=== PATIENT | male | born 1955 | race Hispanic/Latino ===

== ENCOUNTER 2024-06-01 19:04 | Inpatient (IN) | payer MEDICARE ==
[~2024-06-01] VITALS: Ht 182.9 cm; Wt 101.6 kg
[2024-06-01 19:10] VITALS: PULSE 100; RESP 20; TEMP 98.6
[2024-06-01 19:32] LABS: BASOPHILS % 0.2 % (0.0-1.0); EOSINOPHILS # (AUTO) 0.1 (0.0-0.4); EOSINOPHILS % 0.6 % (0.0-6.0); HEMATOCRIT 33.5 % (38.2-49.6); HEMOGLOBIN 10.3 g/dL (14.0-18.0); LYMPHOCYTES # (AUTO) 1.2 (1.0-3.2); MEAN CORPUSCULAR HEMOGLOBIN 32.5 pg (28-32); MEAN CORPUSCULAR HGB CONC 30.7 g/dL (31-35); MEAN CORPUSCULAR VOLUME 105.7 fL (81-99); MONOCYTES # (AUTO) 0.9 (0.2-0.8); MONOCYTES % 4.9 % (4.4-11.3); NEUTROPHILS # (AUTO) 14.8 (2.1-6.9); NEUTROPHILS % 84.9 % (38.7-80.0); PLATELET COUNT 245 x10e3/uL (140-360); RED BLOOD COUNT 3.17 x10e6/uL (4.3-5.7); RED CELL DISTRIBUTION WIDTH 14.2 % (11.7-14.4)
[2024-06-01 19:47] LABS: CORONAVIRUS COVID-19 AG NEGATIVE (NEGATIVE); INFLUENZA A AG NEGATIVE (NEGATIVE); INFLUENZA B AG NEGATIVE (NEGATIVE)
[2024-06-01 19:56] LABS: ALBUMIN 2.7 g/dL (3.5-5.0); ALBUMIN/GLOBULIN RATIO 0.6 (0.8-2.0); ANION GAP 23.9 mmol/L (8-16); BILIRUBIN,TOTAL 0.6 mg/dL (0.2-1.2); CREATININE, SERUM 7.71 mg/dL (0.72-1.25); POTASSIUM 3.9 mmol/L (3.5-5.1); TOTAL PROTEIN 7.4 g/dL (6.5-8.1)
[2024-06-01 20:04] LABS: TROPONIN I 3.878 ng/mL (0-0.300)
[2024-06-01] MEDS: ASPIRIN 325 MG TAB PO STA (20:41)
[2024-06-01] MEDS ORDERED: Morphine 4mg INJECTION 4 MG/ML INJ IV PRN (22:45)
[2024-06-01] MEDS ORDERED: ONDANSETRON HCL INJ 2MG/ML 2ML 2 MG/ML VIAL IV PRN (22:45)
[2024-06-01 23:46] VITALS: BP 104/64; PULSE 99; RESP 20; TEMP 97.6; O2SAT 97
[2024-06-02] VITALS (9 sets, daily range): BP systolic 83–119; BP diastolic 44–86; PULSE 67–102; RESP 16–21; TEMP 97.3–98.3; O2SAT 95–100
[2024-06-02] MEDS ORDERED: NEURONTIN300 MG PO (02:29)
[2024-06-02] MEDS ORDERED: RENA-VITE TABL0.8 MG (02:29)
[2024-06-02] MEDS ORDERED: AMIODARONE HCL200 MG PO (02:29)
[2024-06-02] MEDS ORDERED: ELIQUIS2.5 MG PO (02:29)
[2024-06-02] MEDS ORDERED: FUROSEMIDE40 MG PO (02:29)
[2024-06-02] MEDS ORDERED: LIPITOR20 MG PO (02:29)
[2024-06-02] MEDS ORDERED: AMOXICILLIN500 MG PO (02:29)
[2024-06-02 04:26] LABS: BASOPHILS % 0.2 % (0.0-1.0); EOSINOPHILS # (AUTO) 0.2 (0.0-0.4); EOSINOPHILS % 0.8 % (0.0-6.0); HEMATOCRIT 31.5 % (38.2-49.6); HEMOGLOBIN 9.9 g/dL (14.0-18.0); MEAN CORPUSCULAR HGB CONC 31.4 g/dL (31-35); MONOCYTES # (AUTO) 0.8 (0.2-0.8); MONOCYTES % 4.2 % (4.4-11.3); NEUTROPHILS # (AUTO) 14.8 (2.1-6.9); NEUTROPHILS % 81.8 % (38.7-80.0); PLATELET COUNT 223 x10e3/uL (140-360); RED CELL DISTRIBUTION WIDTH 14.2 % (11.7-14.4); WHITE BLOOD COUNT 18.05 x10e3/uL (4.8-10.8)
[2024-06-02 04:53] LABS: ALBUMIN 2.5 g/dL (3.5-5.0); ALBUMIN/GLOBULIN RATIO 0.6 (0.8-2.0); ANION GAP 22.6 mmol/L (8-16); BILIRUBIN,TOTAL 0.5 mg/dL (0.2-1.2); CALCIUM 8.9 mg/dL (8.4-10.2); CREATININE, SERUM 8.11 mg/dL (0.72-1.25); POTASSIUM 3.6 mmol/L (3.5-5.1)
[2024-06-02 05:04] LABS: TROPONIN I 4.294 ng/mL (0-0.300)
[2024-06-02] MEDS: CLOPIDOGREL BISULFATE 75 MG TAB PO ONE (10:14)
[2024-06-02] MEDS ORDERED: DEXTROSE 50% SYRINGE 50 ML IV PRN (11:30)
[2024-06-02] MEDS: INSULIN REGULAR, HUMAN 100 UNIT/1 ML SQ SCH (12:32)
[2024-06-02 16:39] LABS: TROPONIN I 2.914 ng/mL (0-0.300)
[2024-06-02] MEDS: CARVEDILOL 3.125 MG TAB PO SCH (17:00)
[2024-06-02] MEDS: GABAPENTIN 300 MG CAP PO SCH (17:20)
[2024-06-02] MEDS: APIXABAN 2.5 MG TABLET PO SCH (17:21)
[2024-06-02] MEDS: SODIUM CHLORIDE 0.9% 1000ML 2,000 ML ONE (19:48)
[2024-06-02] MEDS ORDERED: ALBUMIN 25% 12.5GM 0.25 GM/ML BTL IV PRN (20:00)
[2024-06-02] MEDS ORDERED: ATORVASTATIN 40 MG TAB PO SCH (21:00)
[2024-06-03] VITALS (12 sets, daily range): BP systolic 84–131; BP diastolic 52–72; PULSE 82–111; RESP 18–21; TEMP 97–98.8; O2SAT 94–100
[2024-06-03 06:43] LABS: BASOPHILS # (AUTO) 0.1 (0.0-0.1); BASOPHILS % 0.3 % (0.0-1.0); EOSINOPHILS % 0.2 % (0.0-6.0); HEMATOCRIT 29.9 % (38.2-49.6); HEMOGLOBIN 9.4 g/dL (14.0-18.0); LYMPHOCYTES # (AUTO) 1.3 (1.0-3.2); LYMPHOCYTES % 5.9 % (18.0-39.1); MEAN CORPUSCULAR HEMOGLOBIN 33.7 pg (28-32); MEAN CORPUSCULAR HGB CONC 31.4 g/dL (31-35); MEAN CORPUSCULAR VOLUME 107.2 fL (81-99); MONOCYTES # (AUTO) 1.1 (0.2-0.8); MONOCYTES % 5.2 % (4.4-11.3); NEUTROPHILS # (AUTO) 18.5 (2.1-6.9); NEUTROPHILS % 86.3 % (38.7-80.0); PLATELET COUNT 206 x10e3/uL (140-360); RED BLOOD COUNT 2.79 x10e6/uL (4.3-5.7); RED CELL DISTRIBUTION WIDTH 14.2 % (11.7-14.4); WHITE BLOOD COUNT 21.45 x10e3/uL (4.8-10.8)
[2024-06-03 07:18] LABS: ANION GAP 21.6 mmol/L (8-16); CALCIUM 9.3 mg/dL (8.4-10.2); CREATININE, SERUM 5.6 mg/dL (0.72-1.25); POTASSIUM 3.6 mmol/L (3.5-5.1)
[2024-06-03] MEDS: LOSARTAN POTASSIUM 25 MG TAB PO SCH (08:22)
[2024-06-03] MEDS: AMIODARONE HCL 200 MG TAB PO SCH (08:22)
[2024-06-03] MEDS: CLOPIDOGREL BISULFATE 75 MG TAB PO SCH (08:24)
[2024-06-03 09:41] LABS: LYMPHOCYTES % (MANUAL) 5 % (19-48); METAMYELOCYTES % (MANUAL) 1 % (0-0); MONOCYTES % (MANUAL) 5 % (3.4-9.0); MYELOCYTES % (MANUAL) 1 % (0-0); NEUTROPHILS % (MANUAL) 88 % (40-74); PLATELET ESTIMATE ADEQUATE; PLATELET MORPHOLOGY COMMENT NORMAL; RBC MORPHOLOGY COMMENT NORMAL
[2024-06-03] MEDS ORDERED: SODIUM CHLORIDE 0.9% 1000ML 2,000 ML IV PRN (10:15)
[2024-06-03] MEDS: BENZONATATE 100 MG CAP PO SCH (11:58)
[2024-06-03] MEDS: ALBUTEROL/IPRATROPIUM 3 ML NEB NEB SCH (14:21)
[2024-06-03] MEDS: MIDODRINE HCL 5 MG TABLET PO SCH (16:19)
[2024-06-04] VITALS (8 sets, daily range): BP systolic 103–117; BP diastolic 60–92; PULSE 72–90; RESP 18–20; TEMP 97.5–97.9; O2SAT 94–98
[2024-06-04 06:12] LABS: BASOPHILS # (AUTO) 0.1 (0.0-0.1); BASOPHILS % 0.6 % (0.0-1.0); EOSINOPHILS # (AUTO) 0.1 (0.0-0.4); EOSINOPHILS % 0.4 % (0.0-6.0); HEMATOCRIT 31.2 % (38.2-49.6); HEMOGLOBIN 9.6 g/dL (14.0-18.0); LYMPHOCYTES # (AUTO) 2.1 (1.0-3.2); LYMPHOCYTES % 8.7 % (18.0-39.1); MEAN CORPUSCULAR HGB CONC 30.8 g/dL (31-35); MEAN CORPUSCULAR VOLUME 107.2 fL (81-99); MONOCYTES # (AUTO) 1.1 (0.2-0.8); MONOCYTES % 4.6 % (4.4-11.3); NEUTROPHILS # (AUTO) 19.1 (2.1-6.9); NEUTROPHILS % 81.3 % (38.7-80.0); PLATELET COUNT 190 x10e3/uL (140-360); RED BLOOD COUNT 2.91 x10e6/uL (4.3-5.7); RED CELL DISTRIBUTION WIDTH 14.6 % (11.7-14.4); WHITE BLOOD COUNT 23.45 x10e3/uL (4.8-10.8)
[2024-06-04 06:44] LABS: ANION GAP 26.2 mmol/L (8-16); CALCIUM 8.9 mg/dL (8.4-10.2); CREATININE, SERUM 7.92 mg/dL (0.72-1.25); POTASSIUM 4.2 mmol/L (3.5-5.1)
[2024-06-04 08:28] LABS: HEPATITIS B CORE AB TOTAL Negative; HEPATITIS B SURFACE AG (P) Negative
[2024-06-04 11:04] LABS: BAND NEUTROPHILS % (MANUAL) 1 %; LYMPHOCYTES % (MANUAL) 11 % (19-48); MONOCYTES % (MANUAL) 3 % (3.4-9.0); NEUTROPHILS % (MANUAL) 84 % (40-74); PLATELET ESTIMATE ADEQUATE; PLATELET MORPHOLOGY COMMENT NORMAL; REACTIVE LYMPHOCYTES 1
[2024-06-05] VITALS (11 sets, daily range): BP systolic 103–131; BP diastolic 55–90; PULSE 68–94; RESP 16–22; TEMP 97.3–98.5; O2SAT 95–100
[2024-06-05 10:43] LABS: BILIRUBIN,DIRECT 0.6 mg/dL (0.0-0.5); TOTAL PROTEIN 6.5 g/dL (6.5-8.1)
[2024-06-05] MEDS: CEPACOL SORE THROAT LOZENGES PO ONE (15:26)
[2024-06-06] VITALS (12 sets, daily range): BP systolic 80–105; BP diastolic 30–63; PULSE 78–98; RESP 18–22; TEMP 97.3–97.9; O2SAT 96–100
[2024-06-06] MEDS: CEPACOL SORE THROAT LOZENGES PO PRN (00:20)
[2024-06-06 11:29] LABS: ANION GAP 21.4 mmol/L (8-16); CALCIUM 8.6 mg/dL (8.4-10.2); CREATININE, SERUM 7.16 mg/dL (0.72-1.25)
[2024-06-06 11:31] LABS: POTASSIUM 3.4 mmol/L (3.5-5.1)
[2024-06-06] MEDS: MIDODRINE HCL 5 MG TABLET PO SCH (12:28)
[2024-06-06 13:09] LABS: IMMUNOGLOBULIN A 469 mg/dL (61-437); IMMUNOGLOBULIN G 1361 mg/dL (603-1613)
[2024-06-06 21:36] LABS: IMMUNOGLOBULIN M 63 mg/dL (20-172)
[2024-06-07] VITALS (10 sets, daily range): BP systolic 106–125; BP diastolic 47–78; PULSE 77–101; RESP 17–20; TEMP 97–98.2; O2SAT 92–97
[2024-06-07 06:13] LABS: BASOPHILS # (AUTO) 0.2 (0.0-0.1); EOSINOPHILS # (AUTO) 0.3 (0.0-0.4); EOSINOPHILS % 1.9 % (0.0-6.0); HEMATOCRIT 33.7 % (38.2-49.6); HEMOGLOBIN 10.4 g/dL (14.0-18.0); LYMPHOCYTES # (AUTO) 2.3 (1.0-3.2); LYMPHOCYTES % 14.1 % (18.0-39.1); MEAN CORPUSCULAR HEMOGLOBIN 33.5 pg (28-32); MEAN CORPUSCULAR HGB CONC 30.9 g/dL (31-35); MEAN CORPUSCULAR VOLUME 108.7 fL (81-99); MONOCYTES # (AUTO) 1.1 (0.2-0.8); MONOCYTES % 6.4 % (4.4-11.3); NEUTROPHILS # (AUTO) 11.6 (2.1-6.9); NEUTROPHILS % 70.5 % (38.7-80.0); PLATELET COUNT 196 x10e3/uL (140-360); RED CELL DISTRIBUTION WIDTH 15.2 % (11.7-14.4); WHITE BLOOD COUNT 16.49 x10e3/uL (4.8-10.8)
[2024-06-07 06:51] LABS: ALBUMIN 2.9 g/dL (3.5-5.0); ALBUMIN/GLOBULIN RATIO 0.7 (0.8-2.0); BILIRUBIN,TOTAL 0.8 mg/dL (0.2-1.2); CALCIUM 8.8 mg/dL (8.4-10.2); CREATININE, SERUM 8.42 mg/dL (0.72-1.25); TOTAL PROTEIN 7.3 g/dL (6.5-8.1)
[2024-06-07 08:04] LABS: LYMPHOCYTES % (MANUAL) 10 % (19-48); MONOCYTES % (MANUAL) 8 % (3.4-9.0); MYELOCYTES % (MANUAL) 1 % (0-0); NEUTROPHILS % (MANUAL) 81 % (40-74)
[2024-06-07 08:05] LABS: PLATELET ESTIMATE ADEQUATE; PLATELET MORPHOLOGY COMMENT NORMAL; RBC MORPHOLOGY COMMENT NORMAL
[2024-06-07] MEDS: CARVEDILOL 3.125 MG TAB PO SCH (17:00)
[2024-06-08] VITALS (10 sets, daily range): BP systolic 99–113; BP diastolic 53–69; PULSE 82–89; RESP 17–20; TEMP 97.4–98.2; O2SAT 95–100
[2024-06-08 07:02] LABS: BASOPHILS # (AUTO) 0.1 (0.0-0.1); BASOPHILS % 0.7 % (0.0-1.0); EOSINOPHILS # (AUTO) 0.3 (0.0-0.4); EOSINOPHILS % 1.7 % (0.0-6.0); HEMATOCRIT 34.4 % (38.2-49.6); HEMOGLOBIN 10.9 g/dL (14.0-18.0); LYMPHOCYTES # (AUTO) 1.8 (1.0-3.2); LYMPHOCYTES % 11.8 % (18.0-39.1); MEAN CORPUSCULAR HEMOGLOBIN 33.9 pg (28-32); MEAN CORPUSCULAR HGB CONC 31.7 g/dL (31-35); MEAN CORPUSCULAR VOLUME 106.8 fL (81-99); MONOCYTES # (AUTO) 0.8 (0.2-0.8); MONOCYTES % 5.6 % (4.4-11.3); NEUTROPHILS # (AUTO) 11.5 (2.1-6.9); NEUTROPHILS % 76.1 % (38.7-80.0); PLATELET COUNT 265 x10e3/uL (140-360); RED BLOOD COUNT 3.22 x10e6/uL (4.3-5.7); RED CELL DISTRIBUTION WIDTH 16.6 % (11.7-14.4); WHITE BLOOD COUNT 15.12 x10e3/uL (4.8-10.8)
[2024-06-08 08:56] LABS: ANION GAP 18.3 mmol/L (8-16); CALCIUM 9.4 mg/dL (8.4-10.2); CREATININE, SERUM 6.24 mg/dL (0.72-1.25); POTASSIUM 4.3 mmol/L (3.5-5.1)
[2024-06-08] MEDS: LOSARTAN POTASSIUM 25 MG TAB PO SCH (08:57)
[2024-06-09] VITALS (13 sets, daily range): BP systolic 80–129; BP diastolic 30–78; PULSE 76–92; RESP 18–20; TEMP 95.4–98.8; O2SAT 0–100
[2024-06-09 10:48] LABS: BASOPHILS # (AUTO) 0.1 (0.0-0.1); BASOPHILS % 0.6 % (0.0-1.0); EOSINOPHILS # (AUTO) 0.3 (0.0-0.4); HEMATOCRIT 33.1 % (38.2-49.6); LYMPHOCYTES # (AUTO) 1.5 (1.0-3.2); LYMPHOCYTES % 11.5 % (18.0-39.1); MEAN CORPUSCULAR HEMOGLOBIN 33.6 pg (28-32); MEAN CORPUSCULAR HGB CONC 30.2 g/dL (31-35); MEAN CORPUSCULAR VOLUME 111.1 fL (81-99); MONOCYTES # (AUTO) 0.8 (0.2-0.8); MONOCYTES % 6.2 % (4.4-11.3); NEUTROPHILS # (AUTO) 10.3 (2.1-6.9); NEUTROPHILS % 77.5 % (38.7-80.0); PLATELET COUNT 190 x10e3/uL (140-360); RED BLOOD COUNT 2.98 x10e6/uL (4.3-5.7); RED CELL DISTRIBUTION WIDTH 16.9 % (11.7-14.4); WHITE BLOOD COUNT 13.32 x10e3/uL (4.8-10.8)
[2024-06-09 11:00] LABS: ALBUMIN 2.7 g/dL (3.5-5.0); ALBUMIN/GLOBULIN RATIO 0.6 (0.8-2.0); ANION GAP 20.2 mmol/L (8-16); BILIRUBIN,TOTAL 0.9 mg/dL (0.2-1.2); CALCIUM 9.2 mg/dL (8.4-10.2); CREATININE, SERUM 8.13 mg/dL (0.72-1.25); TOTAL PROTEIN 7.5 g/dL (6.5-8.1)
[2024-06-09 11:04] LABS: POTASSIUM 5.2 mmol/L (3.5-5.1)
[2024-06-09] MEDS: ACETAMINOPHEN 325 MG TAB PO PRN (22:55)
[2024-06-10] VITALS (7 sets, daily range): BP systolic 85–118; BP diastolic 42–93; PULSE 81–91; RESP 18–20; TEMP 97.4–98; O2SAT 94–100
[2024-06-11] VITALS (8 sets, daily range): BP systolic 90–117; BP diastolic 52–67; PULSE 79–95; RESP 18–20; TEMP 97.4–97.9; O2SAT 95–100
[2024-06-11 09:40] LABS: BASOPHILS # (AUTO) 0.1 (0.0-0.1); BASOPHILS % 0.4 % (0.0-1.0); EOSINOPHILS # (AUTO) 0.2 (0.0-0.4); EOSINOPHILS % 1.6 % (0.0-6.0); HEMATOCRIT 34.9 % (38.2-49.6); HEMOGLOBIN 10.9 g/dL (14.0-18.0); LYMPHOCYTES % 7.8 % (18.0-39.1); MEAN CORPUSCULAR HGB CONC 31.2 g/dL (31-35); MEAN CORPUSCULAR VOLUME 108.7 fL (81-99); MONOCYTES # (AUTO) 0.5 (0.2-0.8); MONOCYTES % 3.9 % (4.4-11.3); NEUTROPHILS # (AUTO) 10.9 (2.1-6.9); NEUTROPHILS % 85.6 % (38.7-80.0); PLATELET COUNT 208 x10e3/uL (140-360); RED BLOOD COUNT 3.21 x10e6/uL (4.3-5.7); RED CELL DISTRIBUTION WIDTH 17.4 % (11.7-14.4); WHITE BLOOD COUNT 12.71 x10e3/uL (4.8-10.8)
[2024-06-11 09:55] LABS: ALBUMIN 2.8 g/dL (3.5-5.0); ALBUMIN/GLOBULIN RATIO 0.5 (0.8-2.0); ANION GAP 23.1 mmol/L (8-16); BILIRUBIN,TOTAL 1.2 mg/dL (0.2-1.2); CALCIUM 9.5 mg/dL (8.4-10.2); CREATININE, SERUM 8.23 mg/dL (0.72-1.25); POTASSIUM 5.1 mmol/L (3.5-5.1); TOTAL PROTEIN 7.9 g/dL (6.5-8.1)
[2024-06-12] VITALS (8 sets, daily range): BP systolic 95–112; BP diastolic 41–57; PULSE 76–84; RESP 17–18; TEMP 97.4–98.2; O2SAT 96–100
[2024-06-12 08:34] LABS: BASOPHILS % 0.3 % (0.0-1.0); EOSINOPHILS # (AUTO) 0.4 (0.0-0.4); EOSINOPHILS % 3.3 % (0.0-6.0); HEMATOCRIT 37.2 % (38.2-49.6); HEMOGLOBIN 10.8 g/dL (14.0-18.0); LYMPHOCYTES # (AUTO) 1.8 (1.0-3.2); LYMPHOCYTES % 15.9 % (18.0-39.1); MEAN CORPUSCULAR VOLUME 113.8 fL (81-99); MONOCYTES # (AUTO) 0.7 (0.2-0.8); MONOCYTES % 6.2 % (4.4-11.3); NEUTROPHILS # (AUTO) 8.1 (2.1-6.9); NEUTROPHILS % 73.7 % (38.7-80.0); PLATELET COUNT 233 x10e3/uL (140-360); RED BLOOD COUNT 3.27 x10e6/uL (4.3-5.7); RED CELL DISTRIBUTION WIDTH 17.2 % (11.7-14.4); WHITE BLOOD COUNT 11.05 x10e3/uL (4.8-10.8)
[2024-06-12 09:09] LABS: ANION GAP 20.4 mmol/L (8-16); CALCIUM 9.4 mg/dL (8.4-10.2); CREATININE, SERUM 6.21 mg/dL (0.72-1.25); POTASSIUM 4.4 mmol/L (3.5-5.1)
[2024-06-12] MEDS: ALBUMIN 25% 12.5GM 0.25 GM/ML BTL IV PRN (15:02)
[2024-06-12] MEDS: ATORVASTATIN 40 MG TAB PO SCH (21:56)
[2024-06-13] VITALS (10 sets, daily range): BP systolic 95–110; BP diastolic 48–64; PULSE 75–86; RESP 17–18; TEMP 97.4–97.9; O2SAT 96–100
[2024-06-13] MEDS: CARVEDILOL 3.125 MG TAB PO SCH (09:00)
[2024-06-13] MEDS: LOSARTAN POTASSIUM 25 MG TAB PO SCH (09:00)
[2024-06-13] MEDS: APIXABAN 2.5 MG TABLET PO SCH (09:18)
[2024-06-13] MEDS: AMIODARONE HCL 200 MG TAB PO SCH (18:33)
[2024-06-14] VITALS (8 sets, daily range): BP systolic 93–128; BP diastolic 32–68; PULSE 75–84; RESP 17–21; TEMP 97.3–98.6; O2SAT 97–100
[2024-06-14 06:40] LABS: BASOPHILS % 0.3 % (0.0-1.0); EOSINOPHILS # (AUTO) 0.3 (0.0-0.4); EOSINOPHILS % 2.9 % (0.0-6.0); HEMATOCRIT 32.3 % (38.2-49.6); LYMPHOCYTES # (AUTO) 1.2 (1.0-3.2); LYMPHOCYTES % 13.4 % (18.0-39.1); MEAN CORPUSCULAR HEMOGLOBIN 33.4 pg (28-32); MONOCYTES # (AUTO) 0.6 (0.2-0.8); MONOCYTES % 6.2 % (4.4-11.3); NEUTROPHILS % 76.5 % (38.7-80.0); PLATELET COUNT 214 x10e3/uL (140-360); RED BLOOD COUNT 2.99 x10e6/uL (4.3-5.7); RED CELL DISTRIBUTION WIDTH 16.4 % (11.7-14.4); WHITE BLOOD COUNT 9.19 x10e3/uL (4.8-10.8)
[2024-06-14 07:14] LABS: CALCIUM 9.3 mg/dL (8.4-10.2); CREATININE, SERUM 10.37 mg/dL (0.72-1.25)
[2024-06-14] MEDS: SODIUM BICARBONATE 650 MG TAB PO SCH (16:10)
[2024-06-15] VITALS (9 sets, daily range): BP systolic 90–124; BP diastolic 46–69; PULSE 73–76; RESP 18–20; TEMP 97.4–98.4; O2SAT 95–100
[2024-06-15 06:28] LABS: BASOPHILS % 0.4 % (0.0-1.0); EOSINOPHILS # (AUTO) 0.3 (0.0-0.4); EOSINOPHILS % 3.1 % (0.0-6.0); HEMOGLOBIN 9.3 g/dL (14.0-18.0); LYMPHOCYTES # (AUTO) 1.4 (1.0-3.2); LYMPHOCYTES % 14.3 % (18.0-39.1); MEAN CORPUSCULAR VOLUME 106.4 fL (81-99); MONOCYTES # (AUTO) 0.6 (0.2-0.8); MONOCYTES % 6.5 % (4.4-11.3); NEUTROPHILS # (AUTO) 7.4 (2.1-6.9); NEUTROPHILS % 75.1 % (38.7-80.0); PLATELET COUNT 233 x10e3/uL (140-360); RED BLOOD COUNT 2.82 x10e6/uL (4.3-5.7); RED CELL DISTRIBUTION WIDTH 16.4 % (11.7-14.4)
[2024-06-15 06:51] LABS: ANION GAP 19.3 mmol/L (8-16); CALCIUM 9.2 mg/dL (8.4-10.2); CREATININE, SERUM 6.56 mg/dL (0.72-1.25); POTASSIUM 4.3 mmol/L (3.5-5.1)
[2024-06-16] VITALS (7 sets, daily range): BP systolic 103–121; BP diastolic 47–69; PULSE 77–83; RESP 16–21; TEMP 97.4–98; O2SAT 99–100
[2024-06-17] VITALS (7 sets, daily range): BP systolic 99–108; BP diastolic 47–62; PULSE 79–84; RESP 16–19; TEMP 97.4–97.9; O2SAT 93–100
[2024-06-17] MEDS ORDERED: MIDODRINE HCL5 MG PO (12:47)
[2024-06-17] MEDS ORDERED: PLAVIX75 MG PO (12:47)
[2024-06-17] MEDS ORDERED: SODIUM BICARBO650 MG PO (12:47)
[2024-06-17] MEDS ORDERED: COREG3.125 MG PO (12:47)
[2024-06-17] MEDS ORDERED: BACTRIM DS TAB1 EACH PO (13:04)
== END 2024-06-17 13:55 | disposition home or self-care (01) | DRG 280 ==
LOC: ER 19:16 → ERHOLD 22:47 → MED/SURG3 23:47
PROVIDERS: ADMIT Internal Medicine; ATTEND Internal Medicine
PROC: 5A1D70Z Performance of Urinary Filtration, Intermittent, Less than 6 Hours Per Day (ICD-10-PCS; principal; 2024-06-02)
DX: I13.2 Hypertensive heart and chronic kidney disease with heart failure and with stage 5 chronic kidney disease, or end stage renal disease (principal); I50.23 Acute on chronic systolic (congestive) heart failure; I21.A1 Myocardial infarction type 2; N18.6 End stage renal disease; J15.9 Unspecified bacterial pneumonia; Z16.12 Extended spectrum beta lactamase (ESBL) resistance; Z16.24 Resistance to multiple antibiotics; Z99.2 Dependence on renal dialysis; Z95.1 Presence of aortocoronary bypass graft; I35.0 Nonrheumatic aortic (valve) stenosis; B96.20 Unspecified Escherichia coli [E. coli] as the cause of diseases classified elsewhere; E11.65 Type 2 diabetes mellitus with hyperglycemia; D63.1 Anemia in chronic kidney disease; Z79.01 Long term (current) use of anticoagulants; E11.22 Type 2 diabetes mellitus with diabetic chronic kidney disease; E87.79 Other fluid overload; E11.51 Type 2 diabetes mellitus with diabetic peripheral angiopathy without gangrene; K80.20 Calculus of gallbladder without cholecystitis without obstruction; I25.10 Atherosclerotic heart disease of native coronary artery without angina pectoris; Z11.52 Encounter for screening for COVID-19; I25.2 Old myocardial infarction; E78.5 Hyperlipidemia, unspecified; R53.81 Other malaise; E66.9 Obesity, unspecified; I25.5 Ischemic cardiomyopathy; E11.42 Type 2 diabetes mellitus with diabetic polyneuropathy; Z95.810 Presence of automatic (implantable) cardiac defibrillator; Z91.041 Radiographic dye allergy status; Z68.30 Body mass index [BMI] 30.0-30.9, adult
CPT/HCPCS: 36415; 71045; 71046; 71250; 76700; 80048; 80053; 80076; 82550; 82784; 82785; 82948; 83518; 83690; 83880; 84484; 85025; 86704; 86706; 87040; 87070; 87102; 87116; 87186; 87205; 87206; 87340; 93005; 93306; 94640; 94799; 96372; 99252; 99284; J2185; J2543; J7030; J7050